=== PATIENT | female | born 1970 | race Caucasian/White ===

== ENCOUNTER 2020-11-27 21:16 | Inpatient (IN) | payer MEDICARE, OTHER ==
[~2020-11-27] VITALS: Ht 165.1 cm; Wt 74.6 kg
[2020-11-27 22:06] LABS: HEMOGLOBIN 9.9 gm/dl (12.3-15.3); RED BLOOD COUNT 3.33 M/UL (4.00-5.10); WHITE BLOOD COUNT 12.5 K/UL (4.5-11.0)
[2020-11-27 22:34] LABS: BUN/CREATININE RATIO 6 (0-10)
[2020-11-28 02:14] LABS: HEMOGLOBIN 10.3 gm/dl (12.3-15.3); RED BLOOD COUNT 3.47 M/UL (4.00-5.10); WHITE BLOOD COUNT 12.9 K/UL (4.5-11.0)
--- NOTE | 2020-11-28 16:57 | NUR ---
PT WAS TAKEN TO DIALYSIS
[2020-11-28] MEDS ORDERED: OXYCODONE HCL20 MG PO (20:47)
[2020-11-28] MEDS ORDERED: AMITRIPTYLINE100 MG PO (20:48)
[2020-11-28] MEDS ORDERED: FUROSEMIDE80 MG PO (20:49)
[2020-11-28] MEDS ORDERED: PREGABALIN150 MG PO (20:52)
[2020-11-28] MEDS ORDERED: SERTRALINE HCL100 MG PO (20:55)
[2020-11-28] MEDS ORDERED: ACID CONTROLLER20 MG PO (22:18)
[2020-11-28] MEDS ORDERED: ATORVASTATIN CA80 MG PO (22:19)
[2020-11-28] MEDS ORDERED: ROBAXIN 750 MG750 MG PO (22:23)
[2020-11-28] MEDS ORDERED: TRADJENTA5 MG PO (22:38)
[2020-11-29 06:22] LABS: HEMOGLOBIN 9.8 gm/dl (12.3-15.3); RED BLOOD COUNT 3.28 M/UL (4.00-5.10); WHITE BLOOD COUNT 11.3 K/UL (4.5-11.0)
[2020-11-29] MEDS ORDERED: LEVOFLOXACIN500 MG PO (11:43)
--- NOTE | 2020-11-29 15:43 | NUR ---
WHILE AT DIALYSIS PATIENT BECAME TACHYCARDIC IN THE 140'S. DIALYSIS NURSE NOTIFIED AND DR. TEJADA CONTACTED. PROVIDER ORDERED STAT EKG. WILL CONTINUE TO MONITOR.
[2020-11-29 19:12] LABS: HEMOGLOBIN 10.1 gm/dl (12.3-15.3); RED BLOOD COUNT 3.45 M/UL (4.00-5.10)
[2020-11-29 19:14] LABS: WHITE BLOOD COUNT 8.2 K/UL (4.5-11.0)
[2020-11-29 19:32] LABS: BUN/CREATININE RATIO 4 (0-10)
[2020-11-30 05:31] LABS: HEMOGLOBIN 9.9 gm/dl (12.3-15.3); RED BLOOD COUNT 3.37 M/UL (4.00-5.10); WHITE BLOOD COUNT 7.5 K/UL (4.5-11.0)
--- NOTE | 2020-11-30 07:30 | NUR ---
PATIENT IS SET TO BE DISCHARGED THIS AM PER DR. FREY FOR AN APT. WITH HER VASCULAR SURGEON IN [place]. PATIENT IS TACHY CARDIC IN THE 140'S SINCE DIALYSIS YESTERDAY. PROVIDER IS AWARE.
[2020-12-01 06:46] LABS: HEMOGLOBIN 9.4 gm/dl (12.3-15.3); RED BLOOD COUNT 3.17 M/UL (4.00-5.10); WHITE BLOOD COUNT 6.3 K/UL (4.5-11.0)
[2020-12-01 08:15] LABS: HBSAG SCREEN Negative (Negative); HEP A AB, IGM Negative (Negative); HEP B CORE AB, IGM Negative (Negative); HEP C VIRUS AB 0.1 (0.0-0.9)
== END 2020-12-01 15:32 | disposition home or self-care (01) | DRG 853 ==
LOC: ER1 21:16 → CDU 11-28 01:54 → MED SURG 4 11-28 01:54 → CDU 11-28 01:54 → MED SURG 4 11-28 12:35
PROVIDERS: Internal Medicine; Internal Medicine Nephrology; Physician Assistant; ADMIT Internal Medicine
PROC: 5A1D70Z Performance of Urinary Filtration, Intermittent, Less than 6 Hours Per Day (ICD-10-PCS; principal; 2020-11-28)
PROC: 02583ZZ Destruction of Conduction Mechanism, Percutaneous Approach (ICD-10-PCS; 2020-11-30)
PROC: 02K83ZZ Map Conduction Mechanism, Percutaneous Approach (ICD-10-PCS; 2020-11-30)
PROC: 4A023FZ Measurement of Cardiac Rhythm, Percutaneous Approach (ICD-10-PCS; 2020-11-30)
PROC: 4A0234Z Measurement of Cardiac Electrical Activity, Percutaneous Approach (ICD-10-PCS; 2020-11-30)
DX: A41.9 Sepsis, unspecified organism (principal); N18.6 End stage renal disease; G93.41 Metabolic encephalopathy; J18.9 Pneumonia, unspecified organism; T82.590A Other mechanical complication of surgically created arteriovenous fistula, initial encounter; E87.1 Hypo-osmolality and hyponatremia; I13.0 Hypertensive heart and chronic kidney disease with heart failure and stage 1 through stage 4 chronic kidney disease, or unspecified chronic kidney disease; J96.11 Chronic respiratory failure with hypoxia; T82.520A Displacement of surgically created arteriovenous fistula, initial encounter; I48.92 Unspecified atrial flutter; Z20.822 Contact with and (suspected) exposure to COVID-19; E66.9 Obesity, unspecified; J44.9 Chronic obstructive pulmonary disease, unspecified; F17.210 Nicotine dependence, cigarettes, uncomplicated; E11.22 Type 2 diabetes mellitus with diabetic chronic kidney disease; F41.9 Anxiety disorder, unspecified; I50.9 Heart failure, unspecified; Z99.2 Dependence on renal dialysis; I48.91 Unspecified atrial fibrillation; Z82.49 Family history of ischemic heart disease and other diseases of the circulatory system; Z79.899 Other long term (current) drug therapy; Z79.01 Long term (current) use of anticoagulants; Z91.15 Patient's noncompliance with renal dialysis; E87.5 Hyperkalemia; Y83.8 Other surgical procedures as the cause of abnormal reaction of the patient, or of later complication, without mention of misadventure at the time of the procedure
CPT/HCPCS: ECHO; 36415; 36600; 71045; 80048; 80053; 80074; 80202; 82550; 82553; 82728; 82803; 82962; 83605; 83735; 83874; 83880; 83930; 84439; 84443; 84484; 85025; 85379; 86140; 87040; 90935; 90937; 93005; 93306; 93609; 93620; 99152; 99153; 99285; C1730; C1733; C1752; C1766; J0696; J1644; J2150; J2250; J3010; J3370; J7030; J7040; J7070; P9047; U0002